=== PATIENT | male | born 1955 | race Caucasian/White ===

== ENCOUNTER → 2018-01-31 | Day surgery (SDC) | payer OTHER ==
[~2018-01-31] MED LIST: DEXAMETHASONE SOD PHOS INJ 4 MG/ML VIAL ONE; DIOVAN160 MG PO; FAMOTIDINE 20 MG/2 ML VIAL IV ONE; FENTANYL CITRATE/PF 100MCG/2 ML INJ ONE; IOPAMIDOL 610MG/1ML 300 MG/ML VIAL IV ONE; LEVOFLOXACIN 500MG/D5W 100ML 100 ML IV ONE; MIDAZOLAM HCL 2 MG/2 ML VIAL ONE; SCOPOLAMINE 1.5 MG PATCH ONE; SEVOFLURANE INHAL SOLN 250 ML PEN BTL ONE; SODIUM CHLORIDE 0.9% 50ML 50 ML ONE; TRIBENZOR 40-11 EACH PO
--- NOTE | 2018-01-31 11:07 | Operative Report ---
DATE OF PROCEDURE: January 31, 2018 PREOPERATIVE DIAGNOSIS: Left mid-elmo calculus, 15 x 12 mm. POSTOPERATIVE DIAGNOSIS: Left mid-elmo calculus, 15 x 12 mm. OPERATION 1. Cystourethroscopy. 2. Insertion of left double-J ureteral stent, 6 x 30 cm. 3. Left renal extracorporeal shock-wave lithotripsy, 3000 shocks delivered. SLAT TWISTER: Dr. Saleh. ANESTHETIC: General. Mr. Ramos is a 63-year-old male who presented with a chief complaint of severe pain on the left side. Workup showed that he has left mid-caliceal calculus 15 x 12 mm. This patient was placed on the table in the lithotomy position and was prepped and draped in a sterile manner after satisfactory anesthesia. A #23-[place] Citizen cystoscope was used, and cystourethroscopy was performed. It was noted that the urethra was normal. The prostatic urethra was about 3 cm long, bilobar and partially occlusive. Cystoscopy was then performed using both right-angle and the foroblique lens. It was noted that the bladder mucosa was normal, with no evidence of gross tumor, pathology or any palpable lesions. Both ureteral orifices were seen and were within normal position, configuration, efflux. A 0.38 flexible-tip Glidewire was then passed through the working channel of the cystoscope, through the left ureteral orifice. Then under direct vision and fluoroscopic control, it was passed all the way up to the renal pelvis. A 6-[place] Citizen x 30-cm double-J stent was then passed over the guidewire, through the cystoscope, through the left ureteral orifice. Then under direct vision and fluoroscopic control, it was passed all the way up to the renal pelvis, leaving the upper end of the stent in the renal pelvis and the lower end of the stent in the bladder. The guidewire was removed, and the bladder was drained. The cystoscope was removed. This patient was then placed on the table in the supine position, and the calculus was brought into position between F1 and F2 of the fluoroscopic monitors. The lithotripsy was then started, starting at 2 kV and slowly and gradually increased to 7 kV. Observation of the stone pulverization was done at 200 to 250 shocks. At 3000 shocks it was felt that the stone has completely pulverized. The lithotriptor was then shut down. The patient was moved to the [facility] and to the recovery room in satisfactory condition. Plan for this patient is to be placed on Levaquin 500 mg once a day. Ultracet tablet 1 every 4 to 6 hours p.r.n. and was given 50. Ditropan 5 mg 1 twice a day. He is to return to the office in 2 weeks. At that time, a KUB will be performed. If all the stones have been pulverized and passed, will make arrangements to do stent removal. Job#: [id number]
[2018-01-31 11:30] VITALS: BP 134/88
--- OUTSIDE RECORDS SUMMARY | 2018-02-06 12:30 | XMS REPORT | Clinical Summary ---
Author Author [facility] [facility] Address Unknown Phone Unavailable Care Team Providers Care Architectural Technologist Name Role Phone Mady Arevalo MD PCP Allergies Active Allergy Reactions Severity Noted Date Comments No Known Drug Allergies 11/13/2015 Current Medications Prescription Sig. Disp. Refills Start End Date Status Date TRIBENZOR 40-10-12.5 mg Take 1 tablet by mouth 0 10/05/19 Active tablet once daily. 16 valsartan (DIOVAN) 160 MG Take 160 mg by mouth once 3 10/21/19 Active tablet daily. 16 aspirin (ECOTRIN) 81 MG Take 81 mg by mouth Active enteric coated tablet daily. meloxicam (MOBIC) 15 mg Take 1 tablet (15 mg 90 tablet 0 03/28/20 Active tablet total) by mouth once 17 daily for 90 doses. meloxicam (MOBIC) 15 mg TAKE 1 TABLET BY MOUTH 30 tablet 11 11/22/19 03/27/20 Discontin tablet EVERY DAY 17 17 ued Active Problems Problem Noted Date Status post total right knee replacement 12/23/2015 Encounters Date Type Specialty Care Team Description 01/26/2018 Orders Only Procedural Cardiology Sherman Mcclure Preop testing (Primary Dx) 01/25/2018 Hospital Radiology Dave Arevalo, Calculus of kidney Encounter 01/25/2018 Ancillary Radiology Dave Arevalo, Calculus of kidney Orders 01/05/2018 Hospital Radiology Dave Arevalo, Hematuria syndrome; Encounter Low back pain with sciatica, sciatica laterality unspecified, unspecified back pain laterality, unspecified chronicity 12/27/2017 Hospital Radiology Dave Arevalo, Calculus of kidney; Encounter Gross hematuria 12/27/2017 Transcribe Access Abdelsayed, Dave Aziz, Hematuria syndrome Orders (Primary Dx); Low back pain with sciatica, sciatica laterality unspecified, unspecified back pain laterality, unspecified chronicity 12/27/2017 Ancillary Radiology Dave Arevalo, Calculus of kidney; Orders Gross hematuria 03/27/2017 Refill Orthopedic Surgery Fernie Jarvis MD after 01/30/2017 Family History Medical History Relation Name Comments Heart disease Father Hypertension Father COPD Mother Hypertension Mother Thyroid disease Mother Relation Name Status Comments Father Mother Social History Tobacco Use Types Packs/Day Years Used Date Never Smoker Smokeless Tobacco: Never Used Alcohol Use Drinks/Week oz/Week Comments No Sex Assigned at Date Recorded Not on file Last Filed Vital Signs Not on file Plan of Treatment Health Maintenance Due Date Last Done Comments COLON CANCER SCREENING 2005 SHINGRIX VACCINE (#1) 2005 ZOSTER VACCINE 2015 INFLUENZA VACCINE 11/22/2017 Procedures Procedure Name Priority Date/Time Associated Diagnosis Comments ECG 12-LEAD Routine 01/26/2018 Preop testing Results for this 9:04 AM CDT procedure are in the results section. XR ABDOMEN 1 VW Routine 01/25/2018 Calculus of kidney Results for this 10:10 AM CDT procedure are in the results section. CT ABDOMEN PELVIS W Routine 01/05/2018 Hematuria syndrome Results for this CONTRAST 9:35 AM CDT Low back pain with procedure are in the sciatica, sciatica results section. laterality unspecified, unspecified back pain laterality, unspecified chronicity ESTIMATED GFR Routine 01/05/2018 Results for this 8:51 AM CDT procedure are in the results section. POC CREATININE Routine 01/05/2018 Results for this 8:51 AM CDT procedure are in the results section. XR ABDOMEN 1 VW Routine 12/27/2017 Calculus of kidney Results for this 10:51 AM CDT Gross hematuria procedure are in the results section. after 01/30/2017 Results * ECG 12 lead (01/26/2018 9:04 AM) Ventricular rate 55 [facility] Atrial rate 55 [facility] NE interval 122 [facility] QRSD interval 94 [facility] QT interval 404 [facility] QTC interval 386 [facility] P axis 1 20 [facility] QRS axis 1 -38 [facility] T wave axis 13 [facility] EKG impression Sinus bradycardia-Left axis [facility] deviation-Incomplete right bundle branch block-Abnormal ECG- Performing Organization Address [facility]/Zipcode Phone Number [facility] [address] [place] [address] * XR Abdomen 1 Vw (01/25/2018 10:10 AM) Only the most recent of 2 results within the time period is included. Narrative Performed At [facility] CLINICAL INDICATION:N20.0 Calculus of kidney COMPARISON:December 27, 2017 IMPRESSION: Faintly visualized stone in the upper pole left kidney measures approximately 12 mm and is stable when compared to December 27, 2017. Radiopaque densities overlying the left iliac bone likely relate to residual contrast within sigmoid colon diverticuli. The bowel gas pattern is normal. There are clips in the right upper quadrant abdomen relating to prior cholecystectomy. No evidence for free intraperitoneal air. [id number] Procedure Note Interface, Radiology Results Incoming - 01/25/2018 3:57 PM CDT XR ABDOMEN 1 CLINICAL INDICATION: N20.0 Calculus of kidney COMPARISON: December 27, 2017 IMPRESSION: Faintly visualized stone in the upper pole left kidney measures approximately 12 mm and is stable when compared to December 27, 2017. Radiopaque densities overlying the left iliac bone likely relate to residual contrast within sigmoid colon diverticuli. The bowel gas pattern is normal. There are clips in the right upper quadrant abdomen relating to prior cholecystectomy. No evidence for free intraperitoneal air. [facility]-[id number] Performing Organization Address [facility]/Zipcode Phone Number [facility] [address] [place] [address] * CT Abdomen Pelvis W Contrast (01/05/2018 9:35 AM) Narrative Performed At EXAMINATION:CT ABDOMEN [facility]ELVIS W [facility] CLINICAL H[facility]:R31.9 Hematuriaunspecified, M54.40 Lumbago with sciaticaunspecified side, R31.9M54.5 TECHNIQUE: Multiple axial images of the abdomen and pelvis were obtained following intravenous administration of iodinated contrast. Sagittal and coronal computerized reformatted images were also obtained. COMPARISON:None. FINDINGS: 1.There is a 2 cm nodule in the right adrenal gland, within internal density on delayed postcontrast imaging of 17 Hounsfield units. This is most compatible with a benign adenoma. Further imaging is not necessary in the absence of a known history of malignancy. Biochemical adrenal testing can be considered. Left adrenal is normal. 2.Diffuse fatty liver infiltration is present. 3.The gallbladder is absent. 4.The spleen and pancreas are normal. 5.A right midureteral 7 mm calculus at the level of S1 causes mild proximal right hydroureter. A 6 mm calculus in the left ureterovesical junction or distal ureteral orifice is associated with mild left hydroureter. There is a punctate right intrarenal 2-3 mm calculus. There is a 1 cm left intrarenal nonobstructing calculus, and a left renal 3.6 cm lower pole simple cyst. No solid renal mass is seen. The urinary bladder is normal. There is mild left colonic diverticulosis. No small or large bowel obstruction or inflammation is seen.The stomach and appendix are within normal limits. 6.No lymphadenopathy or ascites is seen. 7.There is no significant skeletal abnormality. 8.There is no significant skeletal finding. 9.Juxtapleural 6 mm right lower lobe pulmonary nodule is likely benign. Recommend outpatient follow-up chest CT. IMPRESSION: Right mid ureteral 7 mm calculus and left distal ureteral/ureterovesical junction 6 mm calculus, with only mild obstructive bilateral hydroureter. [id number] Procedure Note Hm Interface, Radiology Results Incoming - 01/05/2018 10:03 AM CDT EXAMINATION: CT ABDOMEN PELVIS W CONTRAST CLINICAL HISTORY: R31.9 Hematuria unspecified, M54.40 Lumbago with sciatica unspecified side, R31.9 M54.5 TECHNIQUE: Multiple axial images of the abdomen and pelvis were obtained following intravenous administration of iodinated contrast. Sagittal and coronal computerized reformatted images were also obtained. COMPARISON: None. FINDINGS: 1. There is a 2 cm nodule in the right adrenal gland, within internal density on delayed postcontrast imaging of 17 Hounsfield units. This is most compatible with a benign adenoma. Further imaging is not necessary in the absence of a known history of malignancy. Biochemical adrenal testing can be considered. Left adrenal is normal. 2. Diffuse fatty liver infiltration is present. 3. The gallbladder is absent. 4. The spleen and pancreas are normal. 5. A right midureteral 7 mm calculus at the level of S1 causes mild proximal right hydroureter. A 6 mm calculus in the left ureterovesical junction or distal ureteral orifice is associated with mild left hydroureter. There is a punctate right intrarenal 2-3 mm calculus. There is a 1 cm left intrarenal nonobstructing calculus, and a left renal 3.6 cm lower pole simple cyst. No solid renal mass is seen. The urinary bladder is normal. There is mild left colonic diverticulosis. No small or large bowel obstruction or inflammation is seen. The stomach and appendix are within normal limits. 6. No lymphadenopathy or ascites is seen. 7. There is no significant skeletal abnormality. 8. There is no significant skeletal finding. 9. Juxtapleural 6 mm right lower lobe pulmonary nodule is likely benign. Recommend outpatient follow-up chest CT. IMPRESSION: Right mid ureteral 7 mm calculus and left distal ureteral/ureterovesical junction 6 mm calculus, with only mild obstructive bilateral hydroureter. [id number] Performing Organization Address [facility] Phone Number [facility] [address] [place] [address] * Estimated GFR (01/05/2018 8:51 AM) Estimated GFR >=90 mL/min/1.73 m2 [facility] Comment: PATHOLOGY AND CatergoryUnitsInte GENOMIC MEDICINE rpretation G1 >=90 Normal or high G2 60-89Mildly decreased [id number] Mildly to moderately decreased V1s36-90 Moderately to severely decreased G4 15-29Severely decreased G5 <15Kidney failure The eGFR was calculated using the Chronic Kidney Disease Epidemiology Collaboration (CKD-EPI) equation. Interpretation is based on recommendations of the National Kidney Foundation-Kidney Disease Outcomes Quality Initiative (NKF-KDOQI) published in 2014. Specimen Blood Performing Organization Address [facility] Phone Number [facility] [address] [place] [address] PATHOLOGY AND GENOMIC MEDICINE * POC creatinine (01/05/2018 8:51 AM) POC creatinine 0.9 0.7 - 1.2 mg/dl [facility] Comment: PATHOLOGY AND Meter ID: [id number] GENOMIC MEDICINE Medical Surgical Tech: Valentina Ayala Specimen Blood Performing Organization Address [facility] Centercode Phone Number [facility] [address] [place] [address] PATHOLOGY AND GENOMIC MEDICINE after 01/30/2017 Insurance Payer Benefit Subscriber ID Type Phone Address Plan / Group AETNA AETNA xxxxxxxxxx HMO HMO,POS,EP O, [place] [address]
== END | disposition home or self-care (01) ==
LOC: OR 06:30
PROVIDERS: ATTEND Specialist
DX: N20.0 Calculus of kidney (principal); I10 Essential (primary) hypertension; M19.90 Unspecified osteoarthritis, unspecified site
CPT/HCPCS: 50590; 52332; C2617; J1100; J1956; J2250